=== PATIENT | male | born 1990 | race Caucasian/White ===

== ENCOUNTER 2022-02-19 09:34 | Emergency (ER) | payer OTHER, SELFPAY ==
[2022-02-19 09:39] VITALS: BP 149/91; PULSE 71; RESP 16; TEMP 36.6; O2SAT 97; BMI 37.2
[2022-02-19 09:46] VITALS: BP 149/91; PULSE 71; RESP 16; TEMP 36.6; O2SAT 97
--- NOTE | 2022-02-19 10:11 | W.ED.WOUNDLC ---
HPI - Wound/Laceration General: Chief Complaint: Wound/Laceration Stated Complaint: Knife injury Time Seen by Provider: 02/19/22 09:51 Source: patient Mode of arrival: ambulatory Limitations: no limitations History of Present Illness: Patient presents to the Emergency Department for a laceration to the tip of his left nondominant thumb. He states he was wearing his cut resistant gloves but he just sharpening his knife and was cutting vegetables in the kitchen. He is employed here at [facility] [employer]. Denies other injury. He states that his last tetanus shot was within the last [address]: work Context: accidental Review of Systems General: Reports: 10 or more systems reviewed and unremarkable except in HPI and below PFSH ED PFSH: Social History Smoking and tobacco status: current every day smoker Alcohol intake: current Alcohol intake frequency: holidays/special occasions only Physical Exam Narrative: EXAM NARRATIVE: He is alert no acute distress. Const: COMMON NORMALS: no acute distress and patient oriented x3 GENERAL APPEARANCE: cooperative and comfortable HENMT: COMMON NORMALS: normocephalic HEAD & SCALP: normocephalic Eye: COMMON NORMALS: Equal, round and reactive pupils present PUPIL: Yes Equal, round and reactive pupils present Neck/C-Spine: COMMON NORMALS: full ROM Cardio: COMMON NORMALS: Peripheral pulses 2+ throughout PERIPHERAL PULSES: Peripheral pulses 2+ throughout Extremity: COMMON NORMALS: full ROM, capillary refill normal and no joint enlargement NARRATIVE EXTREMITY EXAM: Examination with attention of his left hand reveals a flap at the very distal portion of the left thumb distal to the distal nail. Peers to be adherent at one pedicle of the flap. No active bleeding. No other injury. Normal range of motion at the thumb and the remainder of his hand. Neuro: COMMON NORMALS: patient oriented x3, moves all extremities, no focal motor deficits and no sensory deficits noted Psych: COMMON NORMALS: mental status grossly normal Skin: COMMON NORMALS: no rashes or lesions noted and turgor normal GENERAL SKIN EXAM: no rashes or lesions noted and turgor normal Procedures Laceration Laceration 1: Site: hand (Left hand thumb) Side (If applicable): left Description: flap (Measures approximately 1 cm maximum diameter.) Depth: simple, single layer Pre-repair: wound explored and irrigated extensively Skin layer closed with: other (Tissue adhesive) Course Vital Signs: Vital signs: Vital Signs Temperature 97.9 F 02/19/22 09:46 Pulse Rate 71 02/19/22 09:46 Respiratory Rate 16 02/19/22 09:46 Blood Pressure 149/91 02/19/22 09:46 Pulse Oximetry 97 02/19/22 09:46 Oxygen Delivery Me thod 02/19/22 09:46 MDM - Wound/Laceration Medical Decision Making Clean flap laceration with minimal pedicle. Discussed uncertainty of whether the left skin flap will have adequate vascular supply to survive however if it does not the wound should heal normally by secondary intention. The area was approximated with tissue adhesive. Discussed expected course and follow-up. Patient stable for discharge. Discharge Plan Discharge Patient Disposition: Home Clinical Impression: Laceration of thumb Condition: Stable Prescriptions: No Action metoprolol succinate 50 mg tablet extended release 24 hr 50 mg PO DAILY Qty: 90 1RF rosuvastatin 10 mg tablet 10 mg PO DAILY Qty: 90 1RF Discharge Orders: Discharge ED (Routine); Ordered 02/19/22 Ordered By: Sanket Johnson Referrals: Tanner Pool DO [Primary Care Provider] - Discharge Activity: Increase activity as tolerated Patient Instructions: Opioid Safety, Pain Management Activity Restrictions/Additional Instructions: As we discussed your laceration was closed with tissue adhesive. Keep the area covered with a Band-Aid and watch carefully for any signs of redness drainage etc. You may resume work activities while keeping the thumb covered in addition to a bandage with a glove. If you see increasing redness drainage or other concerns return to the emergency department for reevaluation. Coding Level of Care Code ED [employer] Operator for Tita Blanco
[2022-02-19 10:32] VITALS: BP 145/85; PULSE 77; RESP 16; O2SAT 97
== END 2022-02-19 10:35 | disposition home or self-care (01) ==
PROVIDERS: Emergency Provider Emergency Medicine; PCP Family Medicine
DX: S61.012A Laceration without foreign body of left thumb without damage to nail, initial encounter (principal); F17.200 Nicotine dependence, unspecified, uncomplicated; W26.0XXA Contact with knife, initial encounter; Y93.G3 Activity, cooking and baking; Y92.000 Kitchen of unspecified non-institutional (private) residence as the place of occurrence of the external cause
CPT/HCPCS: 12001; 99282